=== PATIENT | female | born 1995 | race Caucasian/White ===

== ENCOUNTER 2017-09-15 23:40 | Emergency (ER) | payer BC ==
[~2017-09-15 23:40] MED LIST: OMEP-125 PO; ONDA4TAB PO
[2017-09-15] MEDS ORDERED: PREN-127 PO (23:59)
--- NOTE | 2017-09-16 00:10 | ER Report ---
History and Physical Time Seen By MD: 00:10 Hx. of Stated Complaint: PT WILL BE NINE WEEKS ON SUNDAY. IS HAVING BLEEDING TONIGHT. STATES BLEEDING MILD AND NO CRAMPING BUT JUST HAD MISCARRIAGE ABOUT 1.5 YEARS AGO. HPI/ROS CHIEF COMPLAINT: vaginal spotting HISTORY OF PRESENT ILLNESS: This is a 22 year old female. She is 9 weeks . Spotting lightly this morning and continuing, but not worsening. Has had prior miscarriage at 11 weeks in the past which started the same way. No cramping or pain at this time. No passage of tissue. Normal bowels and urination , without blood in urine or stool. No bruising or nosebleeds. [facility], normal thus far. Allergies: Coded Allergies: No Known Drug Allergies (Unverified , 09/15/17) Home Meds Active Scripts Ondansetron (ZOFRAN ODT) 4 Mg Tab.rapdis, 4 MG PO Q6H Y for NAUSEA/VOMITING, # 20 TAB.ALOK 0 Refills Prov:REX MENDOZA MD 12/09/16 Reported Medications Vits W-Ca,Fe,Fa(<1MG) ( VITAMINS) 1 Each Tablet, 1 EACH PO DAILY, TAB 09/15/17 Discontinued Reported Medications Omeprazole (OMEPRAZOLE) 20 Mg Capsule.dr, 1 CAP PO BID, CAP 12/09/16 Reviewed Nurses Notes: Yes Hx Substance Use Disorder: No Hx Alcohol Use: No Constitutional Vital Sign - Last 24 Hours 09/15/17 09/15/17 09/16/17 09/16/17 23:45 23:59 00:00 00:15 Temp 98.2 Pulse 88 83 87 76 Resp 14 B/P (MAP) 140/71 122/79 (93) Pulse Ox 99 98 99 97 O2 Delivery Room Air 09/16/17 09/16/17 09/16/17 09/16/17 00:30 00:45 01:00 01:15 Pulse 77 81 79 90 B/P (MAP) 113/65 (81) 112/70 (84) Pulse Ox 97 97 97 97 09/16/17 01:30 Pulse 87 B/P (MAP) 122/79 (93) Pulse Ox 98 Physical Exam General: Alert, anxious. Abdomen: Soft, non-tender. Pelvic exam: The vulva [was normal no lesions.] The vagina [did not have significant discharge.] The cervix was [closed no bleeding and no purulent drainage.] The uterus [was normal size and non tender.] The adnexa [had no masses and no tenderness.] The exam was performed with a director television. Medical Decision Making Data Points Result Diagram: 09/16/17 0000 Laboratory Hematology Test 09/16/17 00:00 09/16/17 00:05 Red Blood Count 4.58 M/uL (4.17-5.56) Mean Corpuscular Volume 83.9 fL (80.0-96.0) Mean Corpuscular Hemoglobin 29.2 pg (26.0-33.0) Mean Corpuscular Hemoglobin Concent 34.8 g/dL (32.0-36.0) Red Cell Distribution Width 14.7 % (11.5-14.5) Mean Platelet Volume 6.7 fL (7.2-11.1) Neutrophils (%) (Auto) 61.1 % (39.4-72.5) Lymphocytes (%) (Auto) 29.4 % (17.6-49.6) Monocytes (%) (Auto) 8.3 % (4.1-12.4) Eosinophils (%) (Auto) 0.8 % (0.4-6.7) Basophils (%) (Auto) 0.4 % (0.3-1.4) Nucleated RBC Relative Count (auto) 0.0 /100WBC Neutrophils # (Auto) 7.6 K/uL (2.0-7.4) Lymphocytes # (Auto) 3.7 K/uL (1.3-3.6) Monocytes # (Auto) 1.0 K/uL (0.3-1.0) Eosinophils # (Auto) 0.1 K/uL (0.0-0.5) Basophils # (Auto) 0.0 K/uL (0.0-0.1) Nucleated RBC Absolute Count (auto) 0.00 K/uL Prothrombin Time 13.9 seconds (12.0-14.4) Prothromb Time International Ratio 1.07 Activated Partial Thromboplast Time 29 seconds (23-35) Human Chorionic Gonadotropin, Quant [id number] mIU/ml Urine Color Straw Urine Clarity Clear Urine pH 6.0 pH (4.8-9.5) Urine Specific [place] 1.004 Urine Protein Negative mg/dL (NEGATIVE) Urine Glucose (UA) Negative mg/dL (NEGATIVE) Urine Ketones Negative mg/dL (NEGATIVE) Urine Blood Moderate (NEGATIVE) Urine Nitrite Negative (NEGATIVE) Urine Bilirubin Negative (NEGATIVE) Urine Urobilinogen Negative mg/dL (0.2-1.9) Urine Leukocyte Esterase Negative (NEGATIVE) Urine RBC <1 /HPF (0-2/HPF) Urine WBC 1 /HPF (0-5/HPF) Urine Squamous Epithelial Cells Many /LPF (</=FEW) Urine Bacteria Few /HPF (NONE-FEW) Urine Mucus None /HPF (NONE-FEW) Chemistry Test 09/16/17 00:00 09/16/17 00:05 White Blood Count 12.5 k/uL (4.5-11.0) Red Blood Count 4.58 M/uL (4.17-5.56) Hemoglobin 13.4 g/dL (12.0-16.0) Hematocrit 38.5 % (34.0-47.0) Mean Corpuscular Volume 83.9 fL (80.0-96.0) Mean Corpuscular Hemoglobin 29.2 pg (26.0-33.0) Mean Corpuscular Hemoglobin Concent 34.8 g/dL (32.0-36.0) Red Cell Distribution Width 14.7 % (11.5-14.5) Platelet Count 255 K/uL (150-450) Mean Platelet Volume 6.7 fL (7.2-11.1) Neutrophils (%) (Auto) 61.1 % (39.4-72.5) Lymphocytes (%) (Auto) 29.4 % (17.6-49.6) Monocytes (%) (Auto) 8.3 % (4.1-12.4) Eosinophils (%) (Auto) 0.8 % (0.4-6.7) Basophils (%) (Auto) 0.4 % (0.3-1.4) Nucleated RBC Relative Count (auto) 0.0 /100WBC Neutrophils # (Auto) 7.6 K/uL (2.0-7.4) Lymphocytes # (Auto) 3.7 K/uL (1.3-3.6) Monocytes # (Auto) 1.0 K/uL (0.3-1.0) Eosinophils # (Auto) 0.1 K/uL (0.0-0.5) Basophils # (Auto) 0.0 K/uL (0.0-0.1) Nucleated RBC Absolute Count (auto) 0.00 K/uL Prothrombin Time 13.9 seconds (12.0-14.4) Prothromb Time International Ratio 1.07 Activated Partial Thromboplast Time 29 seconds (23-35) Human Chorionic Gonadotropin, Quant [id number] mIU/ml Urine Color Straw Urine Clarity Clear Urine pH 6.0 pH (4.8-9.5) Urine Specific [place] 1.004 Urine Protein Negative mg/dL (NEGATIVE) Urine Glucose (UA) Negative mg/dL (NEGATIVE) Urine Ketones Negative mg/dL (NEGATIVE) Urine Blood Moderate (NEGATIVE) Urine Nitrite Negative (NEGATIVE) Urine Bilirubin Negative (NEGATIVE) Urine Urobilinogen Negative mg/dL (0.2-1.9) Urine Leukocyte Esterase Negative (NEGATIVE) Urine RBC <1 /HPF (0-2/HPF) Urine WBC 1 /HPF (0-5/HPF) Urine Squamous Epithelial Cells Many /LPF (</=FEW) Urine Bacteria Few /HPF (NONE-FEW) Urine Mucus None /HPF (NONE-FEW) Coagulation Test 09/16/17 00:00 Prothrombin Time 13.9 seconds Prothromb Time International Ratio 1.07 Activated Partial Thromboplast Time 29 seconds Urinalysis Test 09/16/17 00:05 Urine Color Straw Urine Clarity Clear Urine pH 6.0 pH (4.8-9.5) Urine Specific [place] 1.004 Urine Protein Negative mg/dL (NEGATIVE) Urine Glucose (UA) Negative mg/dL (NEGATIVE) Urine Ketones Negative mg/dL (NEGATIVE) Urine Blood Moderate (NEGATIVE) Urine Nitrite Negative (NEGATIVE) Urine Bilirubin Negative (NEGATIVE) Urine Urobilinogen Negative mg/dL (0.2-1.9) Urine Leukocyte Esterase Negative (NEGATIVE) Urine RBC <1 /HPF (0-2/HPF) Urine WBC 1 /HPF (0-5/HPF) Urine Squamous Epithelial Cells Many /LPF (</=FEW) Urine Bacteria Few /HPF (NONE-FEW) Urine Mucus None /HPF (NONE-FEW) EKG/Imaging Imaging ultrasound: Indication: Bleeding. Technique: Transvaginal imaging, with Doppler. Comparison: None. Uterus: Mildly enlarged, measuring 10.7 x 6.7 x 6.4 cm. position and heart rate: There is a single live early intrauterine gestation. The heart rate is 170. anatomy: The gestational sac, embryo, and yolk sac appear unremarkable. There are no signs of subchorionic hemorrhage. Measurements, EFA, and EDC: The mean sac diameter is 3.4 cm, corresponding to 8 weeks 6 days. The CRL measures 20.9 mm, corresponding to 8 weeks 5 days. Cervical length: The cervix is closed. There is no evidence of funneling. Amniotic fluid: Qualitatively normal. Maternal ovaries: Normal in size and shape. Doppler images demonstrate no evidence of ovarian torsion. No adnexal mass or fluid collection is identified. IMPRESSION: There is a single live early intrauterine gestation. The estimated age 8 weeks 5 days. No acute abnormalities are identified. Report Dictated By: Augustin Sousa MD at 09/16/2017 1:52 AM ED Course/Re-evaluation Clinical Indication for ER IV: IV Access ED Course Labs unremarkable as noted above. White count 12.5, otherwise normal CBC. Quantitative hCG was 139, 500. Normal coags. Normal urinalysis Decision to Disposition Date: Sep 16, 2017 Decision to Disposition Time: 02:13 Depart Departure Latest Vital Signs Vital Signs Date Time Temp Pulse Resp B/P (MAP) Pulse Ox O2 Delivery O2 Flow Rate FiO2 09/16/17 01:30 87 122/79 (93) 98 09/15/17 23:59 98.2 14 Room Air Impression: Primary Impression: Threatened Condition: Condition Unchanged Disposition: HOME OR SELF-CARE Patient Instructions: Threatened Miscarriage (ED) Additional Instructions: Light activity. Pelvic rest (nothing in the vagina). Call your CAMPAIGN DEVELOPER on Sunday to schedule a follow-up with them. REX MENDOZA MD Sep 16, 2017 00:10
[2017-09-16 00:25] LABS: PLATELET COUNT, AUTOMATED 255 K/uL (150-450)
[2017-09-16 00:30] LABS: INR 1.07
--- NOTE | 2017-09-16 02:04 | RADIOLOGY IMAGING REPORT ---
FACILITY: [facility] PATIENT NAME: Penny Edwards : 1995 MR: [id number] V: [id number] EXAM DATE: ORDERING PHYSICIAN: REX MENDOZA TECHNOLOGIST: Location: [facility] [place] Patient: Penny Edwards : 1995 Visit/Account:[id number] Date of Sevice: 09/16/2017 ultrasound: Indication: Bleeding. Technique: Transvaginal imaging, with Doppler. Comparison: None. Uterus: Mildly enlarged, measuring 10.7 x 6.7 x 6.4 cm. position and heart rate: There is a single live early intrauterine gestation. The heart r ate is 170. anatomy: The gestational sac, embryo, and yolk sac appear unremarkable. There are no signs of s ubchorionic hemorrhage. Measurements, EFA, and EDC: The mean sac diameter is 3.4 cm, corresponding to 8 weeks 6 days. The CRL measures 20.9 mm, corresponding to 8 weeks 5 days. Cervical length: The cervix is closed. There is no evidence of funneling. Amniotic fluid: Qualitatively normal. Maternal ovaries: Normal in size and shape. Doppler images demonstrate no evidence of ovarian torsion . No adnexal mass or fluid collection is identified. IMPRESSION: There is a single live early intrauterine gestation. The estimated age 8 weeks 5 days. No acute abnormalities are identified. Report Dictated By: Augustin Sousa MD at 09/16/2017 1:52 AM Report E-Signed By: Augustin Sousa MD at 09/16/2017 2:00 AM [id number]
[2017-09-16 02:17] VITALS: BP 128/82
== END 2017-09-16 02:20 | disposition home or self-care (01) ==
LOC: ER 23:44
DX: O20.0 Threatened abortion (principal); Z3A.08 8 weeks gestation of pregnancy
CPT/HCPCS: 76817; 81001; 84702; 85025; 85610; 85730; 86850; 86900; 86901; 99284

== ENCOUNTER 2018-04-08 20:55 | Inpatient (IN) | payer BC ==
[~2018-04-08] VITALS: Ht 167.6 cm; Wt 113.4 kg
[~2018-04-08 20:55] MED LIST changes: +PREN-127 PO
[2018-04-08] MEDS ORDERED: FAMOTIDINE(*) 20MG/50ML PREMIX 50 ML IVPB PRN (20:57)
[2018-04-08] MEDS ORDERED: OXYTOCIN 30 UNIT/D5LR 500 ML 500 ML IV PRN (20:57)
[2018-04-08] MEDS ORDERED: LR(*) 1000 ML BAG 1,000 ML IV PRN (20:57)
[2018-04-08] MEDS ORDERED: ZOLPIDEM TARTRATE 5 MG TAB PO PRN (21:00)
[2018-04-08] MEDS ORDERED: cefOXitin/DEX(*) 2GM/50ML PREM 50 ML IVPB PRN (21:00)
[2018-04-08] MEDS ORDERED: fentaNYL CITR 100 MCG/2 ML AMP IVP PRN (21:00)
[2018-04-08] MEDS ORDERED: ACETAMINOPHEN 500 MG TAB PO PRN (21:00)
[2018-04-08] MEDS ORDERED: LIDOCAINE 1% LOCAL 300 MG/30ML INJ PRN (21:00)
[2018-04-08] MEDS ORDERED: ONDANSETRON 4 MG/2 ML VIAL IVP PRN (21:00)
[2018-04-08] MEDS ORDERED: TERBUTALINE SULF 1 MG/ML VIAL SUBQ PRN (21:00)
[2018-04-08] MEDS ORDERED: METOCLOPRAMIDE 10 MG/2 ML SDV IVP PRN (21:00)
[2018-04-08] MEDS ORDERED: LIDOCAINE/SOD BICARB 8.4% SYR SC PRN (21:00)
[2018-04-08 21:10] VITALS: BP 144/105; Ht 167.6 cm; Wt 113.4 kg
[2018-04-08 21:56] LABS: PLATELET COUNT, AUTOMATED 223 K/uL (150-450)
[2018-04-08] MEDS ORDERED: hydrALAZINE HCL 20 MG/ML VIAL IVP PRN (23:15)
[2018-04-08] MEDS ORDERED: LABETALOL HCL 100 MG/20ML VIAL IVP PRN (23:15)
--- NOTE | 2018-04-09 07:04 | History & Physical ---
History of Present Illness Age of Patient: 22 : 2 Para or TPAL: 0 EDC per LMP: Apr 22, 2018 EDC per U/S: Apr 24, 2018 Estimated Gestational Age: 38.1 Chief Complaint Preeclampsia History of Present Illness Presents for IOL due to preeclampsia. Has been normotensive up until yesterday when presented for regular visit. She had mildly elevated BP and 2+ proteinuria on dip. She was without symptoms and sent for IOL. Her cervix was relatively favorable as well.at 3/75%/-2. uncomplicated. Past Medical, Surgical, Family and Obstetric Histories reviewed. Please see ACOG p renatal chart. History Allergies: Coded Allergies: No Known Drug Allergies (Unverified , 09/15/17) Med Rec Home Meds Reported Medications Vits W-Ca,Fe,Fa(<1MG) ( VITAMINS) 1 Each Tablet, 1 EACH PO DAILY, TAB 09/15/17 Discontinued Scripts Ondansetron (ZOFRAN ODT) 4 Mg Tab.rapdis, 4 MG PO Q6H PRN for NAUSEA/VOMITING, #20 TAB.ALOK 0 Refills Prov:REX MENDOZA MD 12/09/16 Review of Systems All Systems Reviewed/Normal: Yes, Except as Noted Exam General Exam Vital Signs Vital Signs Date Time Temp Pulse Resp B/P (MAP) Pulse Ox O2 Delivery O2 Flow Rate FiO2 04/08/18 21:10 98.6 91 15 144/105 (118) 94 Room Air General Apperance: Alert/Awake/No Acute Distress Neuro: No Gross deficits, Other (DTR 3+); No Headache Eyes: Normal Extraocular Movement & Vison ENT: Normal Cardiovascular: Regular Rate and Rhythm Respiratory: No Respiratory Distress, Clear to Auscultation Abdomen: Soft, Non-Tender, Non-Distended Musculoskeletal: No Weakness/Pain Extremities: No Cyanosis,Clubbing or Edema Integumentary: Skin Intact without Lesions or Rash Psychological: Alert & Oriented X3, Appropriate Mood & Affect Cervical Dialation: 3 Cervical Effacement (%): 75 Cervical Consistency: Soft Cervical Position: Anterior Station: -2 Presentation: Vertex Fetus Heart Tone Variabilty: Moderate FHT Accelerations: 15X15 FHT Category: I Medical Decision Making Data Points Result Diagram: 04/08/18214404/08/182144 Hematology Test 04/08/18 21:09 04/08/18 21:45 04/09/18 06:45 Urine Color Yellow Urine Clarity Slightly-cloudy Urine pH 6.0 pH (4.8-9.5) Urine Specific [place] 1.023 Urine Protein 500 mg/dL (NEGATIVE) Urine Glucose (UA) Negative mg/dL (NEGATIVE) Urine Ketones Negative mg/dL (NEGATIVE) Urine Blood Negative (NEGATIVE) Urine Nitrite Negative (NEGATIVE) Urine Bilirubin Negative (NEGATIVE) Urine Urobilinogen Negative mg/dL (0.2-1.9) Urine Leukocyte Esterase Negative (NEGATIVE) Urine RBC 2 /HPF (0-2/HPF) Urine WBC 3 /HPF (0-5/HPF) Urine Squamous Epithelial Cells Many /LPF (</=FEW) Urine Bacteria Few /HPF (NONE-FEW) Urine Mucus Few /HPF (NONE-FEW) Red Blood Count 4.53 M/uL (4.17-5.56) Mean Corpuscular Volume 81.7 fL (80.0-96.0) Mean Corpuscular Hemoglobin 27.8 pg (26.0-33.0) Mean Corpuscular Hemoglobin Concent 34.1 g/dL (32.0-36.0) Red Cell Distribution Width 13.7 % (11.5-14.5) Mean Platelet Volume 7.7 fL (7.2-11.1) Neutrophils (%) (Auto) 68.4 % (39.4-72.5) Lymphocytes (%) (Auto) 23.5 % (17.6-49.6) Monocytes (%) (Auto) 7.3 % (4.1-12.4) Eosinophils (%) (Auto) 0.3 % (0.4-6.7) Basophils (%) (Auto) 0.5 % (0.3-1.4) Nucleated RBC Relative Count (auto) 0.0 /100WBC Neutrophils # (Auto) 6.3 K/uL (2.0-7.4) Lymphocytes # (Auto) 2.2 K/uL (1.3-3.6) Monocytes # (Auto) 0.7 K/uL (0.3-1.0) Eosinophils # (Auto) 0.0 K/uL (0.0-0.5) Basophils # (Auto) 0.0 K/uL (0.0-0.1) Nucleated RBC Absolute Count (auto) 0.00 K/uL Sodium Level 136 mmol/L (137-145) Potassium Level 4.0 mmol/L (3.5-5.0) Chloride Level 113 mmol/L (98-107) Carbon Dioxide Level 18 mmol/L (22-31) Blood Urea Nitrogen 11 mg/dl (7-18) Creatinine 0.60 mg/dl (0.52-1.04) Glomerular Filtration Rate Calc > 60.0 Random Glucose 100 mg/dl (75-110) Uric Acid 6.2 mg/dl (2.5-7.5) Calcium Level 8.7 mg/dl (8.4-10.2) Total Bilirubin 0.2 mg/dl (0.2-1.3) Aspartate Amino Transf (AST/SGOT) 25 U/L (0-35) Alanine Aminotransferase (ALT/SGPT) 31 U/L (0-56) Alkaline Phosphatase 170 U/L (0-126) Lactate Dehydrogenase 533 U/L (0-590) Total Protein 5.8 g/dl (6.3-8.2) Albumin 2.9 g/dl (3.5-5.0) HIV (1&2) Antibody Negative (NEGATIVE) Chemistry Test 04/08/18 21:09 04/08/18 21:45 04/09/18 06:45 Urine Color Yellow Urine Clarity Slightly-cloudy Urine pH 6.0 pH (4.8-9.5) Urine Specific [place] 1.023 Urine Protein 500 mg/dL (NEGATIVE) Urine Glucose (UA) Negative mg/dL (NEGATIVE) Urine Ketones Negative mg/dL (NEGATIVE) Urine Blood Negative (NEGATIVE) Urine Nitrite Negative (NEGATIVE) Urine Bilirubin Negative (NEGATIVE) Urine Urobilinogen Negative mg/dL (0.2-1.9) Urine Leukocyte Esterase Negative (NEGATIVE) Urine RBC 2 /HPF (0-2/HPF) Urine WBC 3 /HPF (0-5/HPF) Urine Squamous Epithelial Cells Many /LPF (</=FEW) Urine Bacteria Few /HPF (NONE-FEW) Urine Mucus Few /HPF (NONE-FEW) White Blood Count 9.2 k/uL (4.5-11.0) Red Blood Count 4.53 M/uL (4.17-5.56) Hemoglobin 12.6 g/dL (12.0-16.0) Hematocrit 37.0 % (34.0-47.0) Mean Corpuscular Volume 81.7 fL (80.0-96.0) Mean Corpuscular Hemoglobin 27.8 pg (26.0-33.0) Mean Corpuscular Hemoglobin Concent 34.1 g/dL (32.0-36.0) Red Cell Distribution Width 13.7 % (11.5-14.5) Platelet Count 223 K/uL (150-450) Mean Platelet Volume 7.7 fL (7.2-11.1) Neutrophils (%) (Auto) 68.4 % (39.4-72.5) Lymphocytes (%) (Auto) 23.5 % (17.6-49.6) Monocytes (%) (Auto) 7.3 % (4.1-12.4) Eosinophils (%) (Auto) 0.3 % (0.4-6.7) Basophils (%) (Auto) 0.5 % (0.3-1.4) Nucleated RBC Relative Count (auto) 0.0 /100WBC Neutrophils # (Auto) 6.3 K/uL (2.0-7.4) Lymphocytes # (Auto) 2.2 K/uL (1.3-3.6) Monocytes # (Auto) 0.7 K/uL (0.3-1.0) Eosinophils # (Auto) 0.0 K/uL (0.0-0.5) Basophils # (Auto) 0.0 K/uL (0.0-0.1) Nucleated RBC Absolute Count (auto) 0.00 K/uL Glomerular Filtration Rate Calc > 60.0 Uric Acid 6.2 mg/dl (2.5-7.5) Calcium Level 8.7 mg/dl (8.4-10.2) Total Bilirubin 0.2 mg/dl (0.2-1.3) Aspartate Amino Transf (AST/SGOT) 25 U/L (0-35) Alanine Aminotransferase (ALT/SGPT) 31 U/L (0-56) Alkaline Phosphatase 170 U/L (0-126) Lactate Dehydrogenase 533 U/L (0-590) Total Protein 5.8 g/dl (6.3-8.2) Albumin 2.9 g/dl (3.5-5.0) HIV (1&2) Antibody Negative (NEGATIVE) Urinalysis Test 04/08/18 21:09 04/09/18 06:45 Urine Color Yellow Urine Clarity Slightly-cloudy Urine pH 6.0 pH (4.8-9.5) Urine Specific [place] 1.023 Urine Protein 500 mg/dL (NEGATIVE) Urine Glucose (UA) Negative mg/dL (NEGATIVE) Urine Ketones Negative mg/dL (NEGATIVE) Urine Blood Negative (NEGATIVE) Urine Nitrite Negative (NEGATIVE) Urine Bilirubin Negative (NEGATIVE) Urine Urobilinogen Negative mg/dL (0.2-1.9) Urine Leukocyte Esterase Negative (NEGATIVE) Urine RBC 2 /HPF (0-2/HPF) Urine WBC 3 /HPF (0-5/HPF) Urine Squamous Epithelial Cells Many /LPF (</=FEW) Urine Bacteria Few /HPF (NONE-FEW) Urine Mucus Few /HPF (NONE-FEW) VTE Prophylasis: Adult Deep Vein Thrombosis/Pulmonary: No Pharmacological Contraindicati: Pt at Low Risk for VTE Mechanical Contraindications: Pt at Low Risk for VTE Assessment and Plan Problems: (1) Preeclampsia Assessment & Plan: Without severe features clinically and labs normal other that a markedly elevated urine creatinine at 722 on spot check. Her protein/creatinine ratio estimates her 24H urine protein at 9gm. She was started on slow dose Pitocin through night. Planning AROM and . (2) 38 weeks gestation of Problem Qualifiers (1) Preeclampsia: Trimester: third trimester Qualified Codes: O14.93 - Unspecified pre- eclampsia, third trimester NIKKI ODELL MD Apr 09, 2018 07:04
[2018-04-09] MEDS ORDERED: LIDO/EPI 2% MPF 1:200,000 20ML EPI PRN (07:20)
[2018-04-09] MEDS ORDERED: BUPIVACAINE 0.25% MPF INJ EPI PRN (07:20)
[2018-04-09] MEDS ORDERED: fentaNYL CITR 100 MCG/2 ML AMP IT PRN (07:20)
[2018-04-09] MEDS ORDERED: BUPIVACAINE 0.5% INJ 30ML VIAL EPI PRN (07:20)
[2018-04-09] MEDS ORDERED: ONDANSETRON 4 MG/2 ML VIAL IVP PRN (07:20)
[2018-04-09] MEDS ORDERED: LIDOCAINE/PF 2% 200MG/10ML AMP 200 MG/10 ML AMPUL EPI PRN (07:20)
[2018-04-09] MEDS ORDERED: FENTANYL/ROPIVACAINE 100 ML BAG EPI PRN (07:20)
[2018-04-09] MEDS: DLR(*) 1000 ML BAG 1,000 ML IV SCH ×2 (08:57→20:33)
--- NOTE | 2018-04-09 10:33 | Anesthesia OB Pre-Anes Eval ---
History of Present Illness Anesthesia Start Date: Apr 09, 2018 Anesthesia Start Time: 09:49 OB Anesthesia Diagnosis: gestational hypertension, induction - medical Current Complication: gestational hypertention EDC: Apr 22, 2018 : 2 Para: 0 Vital Signs: Vital Signs 04/08/18 21:10 Temp 98.6 Pulse 91 Resp 15 B/P (MAP) 144/105 (118) Pulse Ox 94 O2 Delivery Room Air Pain Ratin Heart Tones: 132 Result Diagram: 04/08/18214404/08/182144 Height (Inches): 66.00 Weight (Pounds): 250 BMI Calculated: 40.35 Past Medical History Medical History: obesity Surgical History: noncontributory Attended Childbirth Classes?: No Hx Anesthesia Reactions: No Hx Family Anesthesia Reaction: No Current Medications: pitocin Home Meds Reported Medications Vits W-Ca,Fe,Fa(<1MG) ( VITAMINS) 1 Each Tablet, 1 EACH PO DAILY, TAB 09/15/17 Discontinued Scripts Ondansetron (ZOFRAN ODT) 4 Mg Tab.rapdis, 4 MG PO Q6H PRN for NAUSEA/VOMITING, #20 TAB.ALOK 0 Refills Prov:REX MENDOZA MD 12/09/16 Allergies: Coded Allergies: No Known Drug Allergies (Unverified , 09/15/17) Anesthesia OB ROS Neurological: No migraines/headaches, No seizures, No neuropathy, No other ENT: Tongue ring Pulmonary: No asthma, No smoker (pks/day/yrs), No other Airway Class: lll Cardiovascular ROS: No edema, No arrhythmia, No other GI ROS: clear liquids Last Solids Date: Apr 09, 2018 Last Solids Time: 23:59 ROS: No Herpes, No STD(s), No Liver Disease, No Renal Disease, No Other Endocrine ROS: other (obese) Musculoskeletal ROS: No low back pain, No low back injury, No scoliosis, No other ASA Classification: 3 Assessment and Plan Anesthesia Plan: JESÚS TEJADA CRNA Apr 09, 2018 10:33
--- NOTE | 2018-04-09 10:36 | Procedure Note ---
Anesthetic Placement Note Anesthesia Plan: CSE Permit for Anesthesia Signed: Yes Anesthesia Technique: Patient Sitting Anesthesia Prep: Chlorhexidine Interspace: L 3-4 Local Anesthetic: 1% Lidocaine Amount Local - cc's: 3 Anesthesia Needle: 17g Touhy/Schliff Anesthesia Attempts: 2 Loss of Resistance: Normal Saline Depth of STEVEN (cm): 6.5 Epidural Needle Placement: No CSF, No Blood, No Parasthesia Intrathecal Needle: 27 Gauge Pencan Cerebral Spinal Fluid: Yes, Clear Catheter Insertion (cm): 4 (10 cm @ skin) Catheter Type: Varner - Spring Wound Epidural Dressing: Tegaderm, Tape Anesthesia Tray: Lot Number ([id number]), Expiration Date (02/13), Reference Number ([id number]) Anesthesia Medications: Intrathecal Dose: mcg Fentanyl (10), mg Marcaine MPF (2.5), Time (1005) Epidural Test Dose: 1.5 Lido/Epi (1:200,000), Dose - mL (3), Time (1007), Negative Epidural Infusion: 0.2% Ropivicaine, With Fentanyl 2mcg/ml, Start Time: (1020) Epidural Pump Setting: Bolus Dose - mL (8), Lockout - Minutes (20), Maintenance Rate - mL/hr (6), Maximum per Hour - mL (30) Complications: None JESÚS REDDY CRNA Apr 09, 2018 10:36
[2018-04-09] MEDS ORDERED: EPIDURAL KEYS XX PRN (12:00)
[2018-04-09] MEDS ORDERED: MAGNESIUM HYDROXIDE* 30ML UDCP PO PRN (13:15)
[2018-04-09] MEDS ORDERED: BENZOCAINE 20% 60 ML BTL TP PRN (13:15)
[2018-04-09] MEDS ORDERED: HYDROCORTISONE 2.5% CR 30GM TB PR PRN (13:15)
[2018-04-09] MEDS ORDERED: ACETAMINOPHEN 325 MG TAB PO PRN (13:15)
[2018-04-09] MEDS ORDERED: LANOLIN OINT 7 GM TUBE TP PRN (13:15)
[2018-04-09] MEDS ORDERED: APAP/HYDROCODONE 325/7.5 TAB PO PRN (13:15)
[2018-04-09] MEDS ORDERED: GLYCERIN/WITCH HAZEL LEAF 1 PK TP PRN (13:15)
--- NOTE | 2018-04-09 13:21 | OB Delivery Note ---
Delivery Note Vaginal Delivery Type: Spont. Vaginal Delivery Delivery Date: Apr 09, 2018 Delivery Time: 12:46 Estimated Gestational Age(wks): 38.0 Delivery Anesthesia: Epidural Sex: Male Weight (gms): 3355 Apgars: 1 Minute (8), 5 Minute (9) Repair Needed: Laceration, 2nd Degree Estimated Blood Loss: 500 Delivery Complications: Hemorrhage (from perineum laceration), Laceration Notes: IOL due to preeclampsia. Normal progression through labor. AROM with clear fluid. Mild range pressures through labor. Delivery in YEIMI position over second degree laceration. Brisk bleeding from laceration slow to stop until repair completed. Architectural Practice Manager in Attendence: No Copies to: NIKKI ODELL MD ; NIKKI ODELL MD Apr 09, 2018 13:20
[2018-04-09 13:34] LABS: PLATELET COUNT, AUTOMATED 208 K/uL (150-450)
--- NOTE | 2018-04-09 13:54 | Anesthesia Progress Note ---
Assessment and Plan Anesthesia Plan: CSE Anesthesia Stop Day: Apr 09, 2018 Anesthesia Stop Time: 13:00 JESÚS REDDY CRNA Apr 09, 2018 13:54
[2018-04-09] MEDS: IBUPROFEN 800 MG TAB PO SCH ×2 (14:31→21:37)
[2018-04-09] MEDS ORDERED: IBUPROFEN 800 MG TAB PO SCH (17:00)
[2018-04-09 17:41] VITALS: BP 132/85
[2018-04-09 20:00] VITALS: BP 131/80
[2018-04-09] MEDS: DOCUSATE CALCIUM 240 MG CAP PO SCH (21:37)
[2018-04-09 23:30] VITALS: BP 152/78
[2018-04-10] MEDS: DLR(*) 1000 ML BAG 1,000 ML IV SCH (03:04)
[2018-04-10] MEDS: IBUPROFEN 800 MG TAB PO SCH ×2 (05:28→15:32)
[2018-04-10 05:30] VITALS: BP 166/92
[2018-04-10 05:34] VITALS: BP 153/85
--- NOTE | 2018-04-10 08:36 | OB/GYN Progress Note ---
OB Subjective Progress Notes Subjective Doing well. No problems and no new symptoms. Her blood pressure is still running in mild range. GI: NEG Nausea : Voiding Well Pain: Mild OB Objective Physical Exam Vital Signs Date Time Temp Pulse Resp B/P (MAP) Pulse Ox O2 Delivery O2 Flow Rate FiO2 04/10/18 05:34 90 153/85 (107) 04/10/18 05:30 97.2 16 Room Air 04/09/18 17:41 94 Intake and Output 04/10/18 07:00 Intake Total 1750 ml Output Total 650 ml Balance 1100 ml Intake Oral 0 ml IV Total 1750 ml Output Urine Total 650 ml # Voids 3 General Appearance: Alert/Awake/No Acute Distress Neurological: No Gross deficits, Other (DTR 3+) Eyes: Normal Extraocular Movement & Vison Cardiovascular: Normal Rhythm & Peripheral Pulses Respiratory: No Respiratory Distress, Clear to Auscultation Abdomen: Soft, Non-Tender, Non-Distended, Fundus Firm, Non-Tender Extremities: No Cyanosis,Clubbing or Edema Integumentary: Skin Intact without Lesions or Rash Psychological: Alert & Oriented X3, Appropriate Mood & Affect Result Diagram: 04/10/18 0544 04/09/18 1329 Assessment and Plan Problems: (1) Preeclampsia Assessment & Plan: Will add low dose labetalol today and see how her pressure does today. She may need another night observation but if does well, may go home tonight. (2) 38 weeks gestation of (3) care and examination immediately after delivery Problem Qualifiers (1) Preeclampsia: Trimester: third trimester Qualified Codes: O14.93 - Unspecified pre- eclampsia, third trimester NIKKI ODELL MD Apr 10, 2018 08:36
[2018-04-10 08:51] VITALS: BP 138/93
[2018-04-10] MEDS: DOCUSATE CALCIUM 240 MG CAP PO SCH (08:54)
[2018-04-10] MEDS ORDERED: LABETALOL HCL 100 MG TAB PO SCH (09:00)
--- NOTE | 2018-04-10 10:35 | Anesthesia Post Eval Note ---
Anesthesia Post Eval Note Vital Signs 04/10/18 04/10/18 05:30 08:51 Temp 98.2 Pulse 88 Resp 16 B/P (MAP) 138/93 (108) Pulse Ox 95 O2 Delivery Room Air Pt able to participate in Eval: Yes Cardiovascular Status: Satisfactory Respiratory Status: Satisfactory Pain Managment: Satisfactory PO Nausea/Vomiting: Satisfactory Temperature Management: Satisfactory Mental Status: Satisfactory, Alert, Oriented X3 Post-Op Hydration Status: Tolerating PO Well, Voiding w/o Difficulty Anesthesia Type: JESÚS TEJADA CRNA Apr 10, 2018 10:35
[2018-04-10 13:34] VITALS: BP 141/92
--- NOTE | 2018-04-10 17:50 | OB/GYN Progress Note ---
OB Subjective Progress Notes Subjective Feels well, strongly desires to go home. Minimal pain, using only Ibuprofen. No headache, scotomata, or epigastric pain. Mild lochia. Ambulating and voiding well. Baby doing well, nursing fine. OB Objective Physical Exam Vital Signs Date Time Temp Pulse Resp B/P (MAP) Pulse Ox O2 Delivery O2 Flow Rate FiO2 04/10/18 13:34 98.4 79 16 141/92 (108) 96 Room Air BP's around 140/90. Intake and Output 04/10/18 07:00 Intake Total 1750 ml Output Total 650 ml Balance 1100 ml Intake Oral 0 ml IV Total 1750 ml Output Urine Total 650 ml # Voids 3 General Appearance: Alert/Awake/No Acute Distress Cardiovascular: Regular Rate and Rhythm Respiratory: No Respiratory Distress, Clear to Auscultation Abdomen: Soft, Non-Tender, Non-Distended, Bowel Sounds Present, Fundus Firm (at U), Non-Tender Extremities: Reflexes (2-3+/4 and symmetric), Edema (2+ pedal) Integumentary: Skin Intact without Lesions or Rash Psychological: Alert & Oriented X3, Appropriate Mood & Affect Result Diagram: 04/10/18 0544 04/09/18 1329 Assessment and Plan Problems: (1) care and examination immediately after delivery Assessment & Plan: Doing well . Pre-eclampsia appears stable. Will d ischarge home per her wishes. I recommended that she return to clinic on Apr 12 for BP check. (2) Preeclampsia (3) 38 weeks gestation of Status: Resolved Problem Qualifiers (1) Preeclampsia: Trimester: third trimester Qualified Codes: O14.93 - Unspecified pre- eclampsia, third trimester JOSE F BLAND MD Apr 10, 2018 17:50
--- NOTE | 2018-04-10 18:01 | OB/GYN Discharge Summary ---
Discharge Summary Reason for Hosp/Final Diag: (1) care and examination immediately after delivery Hospital Course & Plan: After induced labor with spontaneous vaginal delivery of a healthy male , the patient had no complications. She was discharged home less that 36 hours after delivery, with her sone, in good condition. (2) Preeclampsia Hospital Course & Plan: After delivery, her BP's were a little high, and she was started on Labetalol 100 mg BID, with BP's returning to about 140/90. (3) 38 weeks gestation of Status: Resolved Lates Vital Signs Vital Signs Date Time Temp Pulse Resp B/P (MAP) Pulse Ox O2 Delivery O2 Flow Rate FiO2 04/10/18 13:34 98.4 79 16 141/92 (108) 96 Room Air Weight (Pounds): 250 Result Diagram: 04/10/18 0544 04/09/18 1329 Condition: Improved Discharge: Home, Self Jail Meds Reported Medications Vits W-Ca,Fe,Fa(<1MG) ( VITAMINS) 1 Each Tablet, 1 EACH PO DAILY, TAB 09/15/17 Discontinued Scripts Ondansetron (ZOFRAN ODT) 4 Mg Tab.rapdis, 4 MG PO Q6H PRN for NAUSEA/VOMITING, #20 TAB.ALOK 0 Refills Prov:REX MENDOZA MD 12/09/16 Follow up with: Dr. Reid [phone] Follow up in: 1-2 days (for BP check) Discharge Diet: As Tolerates Discharge Activity: As Tolerates Special Instructions: Discussed discharge instructions and warning signs, including persistent headache, scotomata, epigastric pain, pelvic pain, heavy vaginal bleeding, or fever of 100.5 or higher. Copies to: NIKKI REID MD ; Problem Qualifiers (1) Preeclampsia: Trimester: third trimester Qualified Codes: O14.93 - Unspecified pre- eclampsia, third trimester JOSE F BLAND MD Apr 10, 2018 17:54
[2018-04-10] MEDS ORDERED: LABE100T2 PO (18:07)
[2018-04-10] MEDS ORDERED: DOCU240C67 PO (18:07)
[2018-04-10] MEDS ORDERED: TUCKS TP (18:07)
[2018-04-10] MEDS ORDERED: IBUP800T37 PO (18:07)
[2018-04-10] MEDS ORDERED: Benzocaine 60 ML TP (18:07)
[2018-04-10] MEDS ORDERED: Lanolin TP (18:07)
[2018-04-10 19:53] VITALS: BP 143/92
[2018-04-10 20:37] VITALS: BP 136/77
[2018-04-10] MEDS ORDERED: IBUPROFEN 800 MG TAB PO SCH (23:30)
[2018-04-11] MEDS ORDERED: INFLUENZA VIRUS VAC 0.5ML SYR IM ONLY ONE (13:15)
[2018-04-11] MEDS ORDERED: DIPHTH/TETANUS/ACEL. PERTUSSIS IM ONLY ONE (13:15)
[2018-04-11] MEDS ORDERED: MEASLES,MUMP,RUBELLA VAC 0.5ML SUBQ ONE (13:15)
== END 2018-04-10 21:20 | disposition home or self-care (01) | DRG 806 ==
LOC: OB 20:55
PROVIDERS: ADMIT Obstetrics & Gynecology; ATTEND Obstetrics & Gynecology
PROC: 3E033VJ Introduction of Other Hormone into Peripheral Vein, Percutaneous Approach (ICD-10-PCS; 2018-04-08)
PROC: 10E0XZZ Delivery of Products of Conception, External Approach (ICD-10-PCS; principal; 2018-04-09)
PROC: 0KQM0ZZ Repair Perineum Muscle, Open Approach (ICD-10-PCS; 2018-04-09)
PROC: 10907ZC Drainage of Amniotic Fluid, Therapeutic from Products of Conception, Via Natural or Artificial Opening (ICD-10-PCS; 2018-04-09)
DX: O14.04 Mild to moderate pre-eclampsia, complicating childbirth (principal); O36.0130 Maternal care for anti-D [Rh] antibodies, third trimester, not applicable or unspecified; Z37.0 Single live birth; Z68.41 Body mass index [BMI] 40.0-44.9, adult; O67.8 Other intrapartum hemorrhage; O99.214 Obesity complicating childbirth; E66.9 Obesity, unspecified; Z3A.38 38 weeks gestation of pregnancy
CPT/HCPCS: 36415; 81001; 82040; 82247; 82310; 82374; 82435; 82565; 82570; 82947; 83615; 84075; 84132; 84155; 84156; 84295; 84450; 84460; 84520; 84550; 85025; 85027; 85461; 86703; 86850; 86870; 86900; 86901; J2405; J2590; J2791; J3010; J7120; S0020